=== PATIENT | male | born 1955 | race Caucasian/White ===

== ENCOUNTER 2024-12-08 08:27 | Outpatient (CLI) | payer MEDICARE, OTHER ==
--- NOTE | 2024-12-08 10:21 | RADIOLOGY REPORT ---
INDICATION: RUQ PAIN TECHNIQUE: Multiple real-time sonographic images of the abdomen were obtained. COMPARISON: None FINDINGS: The liver is homogenous in echogenicity. The liver measures 14cm. No intrahepatic biliary ductal dilatation is noted. The gallbladder wall measures 0.2 cm and is unremarkable. No gallstones or sludge is seen. The common duct measures 0.3 cm and is unremarkable. No pericholecystic fluid is noted. The right kidney measures 11cm. No hydronephrosis. The left kidney measures 11cm. No hydronephrosis. Multiple right renal cysts measuring up to 4 cm. Left renal cysts measuring up to 2 cm. The spleen measures 22cm, within normal limits. The echogenicity is within normal limits. The pancreas is not well visualized due to obscuration from bowel gas. The visualized portions of the IVC and aorta are grossly unremarkable. IMPRESSION: Normal exam of the abdomen.
== END 2024-12-08 23:59 | disposition home or self-care (01) ==
LOC: RAD 08:27
PROVIDERS: ATTEND Internal Medicine
DX: R10.11 Right upper quadrant pain (principal)
CPT/HCPCS: 76700